=== PATIENT | male | born 1970 | race Two or more races ===

== ENCOUNTER 2023-11-17 08:57 | Emergency (ER) | payer OTHER ==
[~2023-11-17] VITALS: Ht 180.3 cm; Wt 102.1 kg
[2023-11-17] MEDS ORDERED: GLUMETZA500 MG PO (09:10)
[2023-11-17] MEDS ORDERED: ATORVASTATIN CA20 MG PO (09:11)
[2023-11-17] MEDS ORDERED: 0.9 % SODIUM CHLORIDE 1,000 ML IV ONE (09:30)
[2023-11-17] MEDS ORDERED: TAMSULOSIN HCL 0.4 MG CAP PO ONE (09:30)
[2023-11-17] MEDS ORDERED: HYOSCYAMINE SULFATE 0.125 MG TAB.SUBL SL ONE (09:30)
[2023-11-17] MEDS ORDERED: KETOROLAC TROMETHAMINE 15 MG VIAL IV ONE (09:30)
[2023-11-17] MEDS ORDERED: ONDANSETRON HCL 2 MG/ML VIAL IV ONE (09:30)
[2023-11-17 10:10] LABS: HEMATOCRIT 44.9 % (39.0-48.0); HEMOGLOBIN 15.5 g/dL (13-16.00); MEAN CELL VOLUME 94.7 fL (80.0-100.00); MEAN CORPUSCULAR HEMOGLOBIN 32.8 pg (27.00-32.0); MEAN CORPUSCULAR HGB CONC 34.6 g/dl (32.0-36.0); PLATELET COUNT 190 K/uL (150-450); RED BLOOD COUNT 4.74 M/uL (4.00-6.00); RED CELL DISTRIBUTION WIDTH 13.8 % (11.5-14.5)
[2023-11-17 10:46] LABS: URINE APPEARANCE Clear; URINE BILIRRUBIN Negative (NEGATIVE); URINE COLOR Yellow; URINE GLUCOSE Negative (NEGATIVE); URINE LEUKOCYTE Negative; URINE NITRATE Negative
[2023-11-17 10:50] LABS: URINE RBC 34.3 uL (0.0-20.8); URINE WBC 2.1 uL (0.0-23.2)
[2023-11-17 10:52] LABS: ALBUMIN 4.3 gm/dL (3.4-5.0); BILIRUBIN TOTAL 0.35 mg/dL (0.3-1.2); CALCIUM 9.5 mg/dL (8.5-10.1); CREATININE SERUM 1.24 mg/dL (0.70-1.30); GFR 60.75; GLOBULINA 2.7 G/DL (2.4-3.5); POTASSIUM 4.1 mEq/L (3.5-5.1)
[2023-11-17 10:59] LABS: URINE BACTERIA 3.7 uL (0.0-1933); URINE BLOOD TRACE; URINE EPITHELIAL CELLS 0.9 uL (0.0-38.8); URINE PROTEIN 100 (NEGATIVE)
== END 2023-11-17 12:11 | disposition home or self-care (01) ==
LOC: ER 08:57
PROVIDERS: General Practice
DX: N20.0 Calculus of kidney (principal); R10.9 Unspecified abdominal pain; E11.9 Type 2 diabetes mellitus without complications; Z79.84 Long term (current) use of oral hypoglycemic drugs